=== PATIENT | male | born 1960 | race Caucasian/White ===

== ENCOUNTER 2023-06-16 11:54 | Outpatient (OUT) | payer OTHER, SELFPAY ==
[2023-06-16 12:12] LABS: Basophils Absolute Auto 0.1 10^3/uL (0.0-0.1); Basophils Percent Auto 0.7 % (0.2-2.0); Eosinophils Absolute Auto 0.1 10^3/uL (0.0-0.7); Eosinophils Percent Auto 0.7 % (0.9-7.0); Hematocrit 45.2 % (42.0-54.0); Hemoglobin 15.4 g/dL (14.0-18.0); Immature Granulocytes Abs Auto 0.02 10^3/uL (0.00-0.03); Immature Granulocytes Pct Auto 0.3 % (0.0-0.5); Lymphocytes Absolute Auto 1.1 10^3/uL (1.2-3.8); Lymphocytes Percent Auto 14.5 % (20.5-60.0); Mean Corpuscular HGB Conc 34.1 g/dL (29.9-35.2); Mean Corpuscular Hemoglobin 31.2 pg (25.9-34.0); Mean Corpuscular Volume 91.5 fL (80.0-94.0); Mean Platelet Volume 9.2 fL (9.5-13.5); Monocytes Absolute Auto 0.4 10^3/uL (0.3-0.8); Monocytes Percent Auto 5.9 % (1.7-12.0); Neutrophils Absolute Auto 5.8 10^3/uL (1.4-6.5); Neutrophils Percent Auto 77.9 % (43.0-75.0); Platelet Count 244 10^3/uL (150-450); Red Blood Count 4.94 10^6/uL (4.70-6.10); White Blood Count 7.5 10^3/uL (4.0-11.0)
[2023-06-16 14:42] LABS: Alanine Aminotransferase 25 U/L (16-63); Albumin Globulin Ratio 1.2; Albumin Level 3.6 g/dL (3.4-5.0); Alkaline Phosphatase 67 U/L (46-116); Anion Gap 13.7; Aspartate Amino Transferase 25 U/L (15-37); BUN Creatinine Ratio 21.1; Bilirubin Total 0.4 mg/dL (0.2-1.0); Calcium 9.3 mg/dL (8.5-10.1); Carbon Dioxide 26.3 mmol/L (21.0-32.0); Chloride 100 mmol/L (98-107); Chol HDL Ratio 2.9; Cholesterol 179 mg/dL (<=200); Estimated GFR (African America >60 (>=60); Estimated GFR (Non-African Ame >60 (>=60); Globulin 3.1 g/dL; Glucose 197 mg/dL (74-106); HDL Cholesterol 61 mg/dL (40-60); Sodium 136 mmol/L (136-145); Total Protein 6.7 g/dL (6.4-8.2); Triglycerides 130 mg/dL (<=150)
[2023-06-16 14:59] LABS: Prostate Specific Antigen Scrn 0.83 ng/mL (<=4.00)
[2023-06-16 17:20] LABS: Estimated Average Glucose 103 mg/dL; Glycohemoglobin A1C 5.2 % (4.5-6.2)
== END 2023-06-16 11:55 | disposition home or self-care (01) ==
LOC: LAB 11:58
PROVIDERS: PCP Family Medicine; Visit Provider Family Medicine
DX: Z00.00 Encounter for general adult medical examination without abnormal findings (principal); Z12.5 Encounter for screening for malignant neoplasm of prostate; R73.01 Impaired fasting glucose
CPT/HCPCS: 36415; 80053; 80061; 83036; 85025; G0103

== ENCOUNTER 2024-06-03 04:35 | Emergency (ER) | payer OTHER, SELFPAY ==
[2024-06-03 04:39] VITALS: BP 135/80; PULSE 124; TEMP 36.8; O2SAT 98; BMI 25.8
--- NOTE | 2024-06-03 04:44 | ED.DENTAL1 ---
HPI - Dental/Oral General Chief complaint: Dental/Oral Stated complaint: toothache Time Seen by Provider: 06/03/24 04:43 Source: patient Mode of arrival: walk-in Limitations: no limitations History of Present Illness HPI Narrative: cc - dental pain The patient's right front tooth is capped and he said that about a year ago it got infected. He saw that dentist which is when they applied this. Now he complains of the same kind of pain that started about 4 days ago but became acutely worse over the last 12 hours. He feels a painful swollen area on the roof of the mouth just behind the right front tooth. He said that he had a fever yesterday but none today. No other symptoms such as facial swelling, cheek pain, lip swelling, vomiting. Related Data Previous Rx's ?Medication ?Instructions ?Recorded clindamycin HCl 150 mg capsule 450 mg (3 x 150 mg) PO Q8H 7 days 06/03/24 #63 caps Allergies Allergy/AdvReac Type Severity Reaction Status Date / Time No Known Drug Allergies Allergy Verified 06/03/24 04:42 PFSH PFSH Social History Little interest or pleasure in doing things: not at all Feeling down, depressed, or hopeless: not at all Exam Narrative Exam Narrative: General: The patient is comfortable, alert and oriented x3, well appearing, non toxic in no apparent distress. Head: Atraumatic and normocephalic. Eyes: Normal conjunctiva ENT: The oropharynx is normal. No pharyngeal erythema, uvular edema, tonsillar exudates, asymmetry or trismus. Uvula is midline. Mouth is normal to inspection with the exception of a pain on percussion of the tooth #8 and the associated tissue behind the tooth on the roof of the mouth. The tooth is So I cannot see whether there are any caries present. There is no evidence of facial asymmetry or abscess formation. Floor of the mouth is soft. No tenderness in the submental or submandibular space. No tongue elevation or deviation. The patient has no evidence of periapical abscess, gingivitis or other acute pathology. Airway is patent. Neck: The neck demonstrates normal range of motion. No meningeals signs are present. No stridor. No masses or lymphandenopathy noted. Respiratory: No acute distress, lungs are clear to auscultation, no wheezing, rhonchi, or rales noted. No stridor or retractions are noted. Cardiovascular: Regular rate and rhythm Skin: The skin exam shows no evidence of rashes Neuro: Alert and oriented x4, normal speech Lymphatic: No cervical lymphadenopathy Constitutional Vital Signs, click to edit/add: Last Vital Signs Temp 98.2 F 06/03/24 04:39 Pulse 124 H 06/03/24 04:39 Resp 18 06/03/24 04:39 BP 135/80 06/03/24 04:39 Pulse Ox 98 06/03/24 04:39 O2 Del Method Room Air 06/03/24 04:39 Course Vital Signs Vital signs: Vital Signs Temperature 98.2 F 06/03/24 04:39 Pulse Rate 124 H 06/03/24 04:39 Respiratory Rate 18 06/03/24 04:39 Blood Pressure 135/80 06/03/24 04:39 Pulse Oximetry 98 06/03/24 04:39 Oxygen Delivery Method Room Air 06/03/24 04:39 Temperature 98.2 F 06/03/24 04:39 Pulse Rate 124 H 06/03/24 04:39 Respiratory Rate 18 06/03/24 04:39 Blood Pressure 135/80 06/03/24 04:39 Pulse Oximetry 98 06/03/24 04:39 Oxygen Delivery Method Room Air 06/03/24 04:39 MDM - Dental/Oral MDM Narrative Medical decision making narrative: The patient was started on clindamycin and given topical dental paste for pain control. He was discharged home and instructed to call his dentist tomorrow morning -in order to schedule follow-up NAVEEN. Discharge Plan Discharge Chief Complaint: Dental/Oral Clinical Impression: Toothache, Gingival abscess Patient Disposition: Home, Self-Care Time of Disposition Decision: 04:55 Prescriptions / Home Meds: New clindamycin HCl 150 mg capsule 450 mg PO Q8H 7 Days Qty: 63 0RF Print Language: [place] Instructions: Toothache (ED), Periodontal Disease (DC) Referrals: KELLY EMANUEL [Primary Care Provider] - 1 week
[2024-06-03] MEDS: CLINDAMYCIN HCL 150 MG CAPSULE 450 MG PO (05:03)
[2024-06-03] MEDS: BENZOCAINE 30 ML, lidocaine HCL 15 ML MM (05:03)
== END 2024-06-03 05:07 | disposition home or self-care (01) ==
PROVIDERS: Emergency Provider Emergency Medicine; PCP Family Medicine
DX: K05.20 Aggressive periodontitis, unspecified (principal); K08.89 Other specified disorders of teeth and supporting structures
CPT/HCPCS: 99283

== ENCOUNTER 2024-06-28 09:14 | Outpatient (OUT) | payer OTHER, SELFPAY ==
--- NOTE | 2024-06-28 09:19 | XR_ITS ---
[facility] [place] [id number] Patient Name: PATRICK BANSAL MRN: [id number] date: 1960 Sex: M Assigned Patient Location: [facility] Current Patient Location: [facility] Accession/Order Number: [id number] Exam Date: 06/28/2024 10:23 Report Date: 06/28/2024 10:29 At the request of: KELLY EMANUEL Procedure: XR chest 2V PA AND LATERAL CHEST: CLINICAL HISTORY: Chronic Cough COMPARISON: None Minimal atelectasis and/or scarring is noted. There is no focal parenchymal consolidation, effusion or pneumothorax. The cardiac, hilar and mediastinal silhouettes are within normal limits. There is no vascular congestion. The visualized bony thorax is intact. Mild dextroscoliotic curvature and tiny endplate spurs are present. XR/XR chest 2V IMPRESSION: NO ACUTE CARDIOPULMONARY ABNORMALITY. Impression dictated by: Jaleesa Dickinson M.D. 06/28/2024 10:29 AM Dictation Location: [place] [id number] Electronically authenticated by: [id number] Y Date: 06/28/2024 10:29
== END 2024-06-28 09:15 | disposition home or self-care (01) ==
LOC: RAD 09:15
PROVIDERS: PCP Family Medicine; Visit Provider Family Medicine
DX: R05.3 Chronic cough (principal)
CPT/HCPCS: 71046

== ENCOUNTER 2024-12-21 12:48 | Outpatient (OUT) | payer OTHER, SELFPAY ==
--- OUTSIDE RECORDS SUMMARY | 2024-12-21 12:56 | XMS_ITS | CCD ---
Author Organization [facility] Care Team Providers Care Screen Printing Loader Unloader Name Role Phone DR KELLY EMANUEL Admitting Unavailable DR KELLY EMANUEL Attending Unavailable DR KELLY EMANUEL Primary Care Unavailable DR KELLY EMANUEL Consulting Unavailable Problems Problem ClassificationProblemDateDocumented DateEpisodic/ChronicOther screening for suspected conditions (not mental disorders or infectious disease) (1 source)Encounter for screening for malignant neoplasm of prostate; Translations: [ENC SCREEN MALIG NEOPLASM PROSTATE]Onset: [id number] Results Test NameValueInterpretationReference RangeFacilityCBC WITH DIFFon [id number] BASOPHIL0.05 x10^3ulNormal(0.00 - 0.16)[facility] ClinicComment on above:Order Comment: FACILITY: DR EMANUEL - OFFICE [id number] By: #### CBC/D, CHEM-C, LIPID, PSA-S #### [facility] [address] [facility], [address] ABS EOSINOPHIL0.25 x10^3ulNormal(0.00 - 0.40)[facility] ClinicComment on above:Order Comment: FACILITY: DR EMANUEL - OFFICE [id number] By: #### CBC/D, CHEM-C, LIPID, PSA-S #### [facility] [address] [facility], [address] ABS IMMATURE GRANS0.02 x10^3ulNormal(0.00 - 0.11)[facility] ClinicComment on above:Order Comment: FACILITY: DR EMANUEL - OFFICE [id number] By: #### CBC/D, CHEM-C, LIPID, PSA-S #### [facility] [address] [facility], [address] ABS LYMPHOCYTE1.48 x10^3ulNormal(0.96 - 5.40)[facility] ClinicComment on above:Order Comment: FACILITY: DR EMANUEL - OFFICE [id number] By: #### CBC/D, CHEM-C, LIPID, PSA-S #### [facility] [address] [facility], [address] ABS MONOCYTE0.85 x10^3ulNormal(0.10 - 1.00)[facility] Comment on above:Order Comment: FACILITY: DR EMANUEL - OFFICE [id number] By: #### CBC/D, CHEM-C, LIPID, PSA-S #### [facility] [address] [facility], [address] ABS NEUTROPHIL6.59 x10^3ulNormal(1.50 - 7.00)[facility] ClinicComment on above:Order Comment: FACILITY: DR EMANUEL - OFFICE [id number] By: #### CBC/D, CHEM-C, LIPID, PSA-S #### [facility] [address] [facility], [address] Basophils/100 WBC (Bld)0.5 %Normal()[facility] ClinicComment on above:Order Comment: FACILITY: DR EMANUEL - OFFICE [id number] By: #### CBC/D, CHEM-C, LIPID, PSA-S #### [facility] [address] [facility], [address] Eosinophils/100 WBC (Bld)2.7 %Normal()[facility] Comment on above:Order Comment: FACILITY: DR EMANUEL - OFFICE [id number] By: #### CBC/D, CHEM-C, LIPID, PSA-S #### [facility] [address] [facility], [address] Hematocrit (Bld) [Volume fraction]47.4 %Normal(42.0 - 52.0)[facility] ClinicComment on above:Order Comment: FACILITY: DR EMANUEL - OFFICE [id number] By: #### CBC/D, CHEM-C, LIPID, PSA-S #### [facility] [address] [place], [address] Hemoglobin (Bld) [Mass/Vol]16.7 g/dLNormal(14.0 - 18.0) [facility] ClinicComment on above:Order Comment: FACILITY: DR EMANUEL - OFFICE [id number] By: #### CBC/D, CHEM-C, LIPID, PSA-S #### [facility] [address] [place], [address] IMMATURE GRANS (IG)0.2 %Normal()[facility] ClinicComment on above:Order Comment: FACILITY: DR EMANUEL - OFFICE [id number] By: #### CBC/D, CHEM-C, LIPID, PSA-S #### [facility] [address] [place], [address] LYMPS16.0 %Normal()[facility] ClinicComment on above:Order Comment: FACILITY: DR EMANUEL - OFFICE [id number] By: #### CBC/D, CHEM-C, LIPID, PSA-S #### [facility] [address] [place], [address] MCH (RBC) [Entitic mass]30.1 pgNormal(27.0 - 33.0)[facility] ClinicComment on above:Order Comment: FACILITY: DR EMANUEL - OFFICE [id number] By: #### CBC/D, CHEM-C, LIPID, PSA-S #### [facility] [address] [place], [address] MCHC (RBC) [Mass/Vol]35.2 g/dLNormal(30.0 - 37.0)[facility] ClinicComment on above:Order Comment: FACILITY: DR EMANUEL - OFFICE [id number] By: #### CBC/D, CHEM-C, LIPID, PSA-S #### [facility] [address] [place], [address] MCV (RBC) [Entitic vol]85.6 fLNormal(80.0 - 94.0)[facility] ClinicComment on above:Order Comment: FACILITY: DR EMANUEL - OFFICE [id number] By: #### CBC/D, CHEM-C, LIPID, PSA-S #### [facility] [address] [place], [address] MONOS9.2 %Normal()[facility] ClinicComment on above:Order Comment: FACILITY: DR EMANUEL - OFFICE [id number] By: #### CBC/D, CHEM-C, LIPID, PSA-S #### [facility] [address] [place], [address] PLT233 x10^3ulNormal(130 - 400)[facility] ClinicComment on above:Order Comment: FACILITY: DR EMANUEL - OFFICE [id number] By: #### CBC/D, CHEM-C, LIPID, PSA-S #### [facility] [address] [place], [address] RBC5.54 x10^6ulNormal(4.70 - 6.10)[facility] ClinicComment on above:Order Comment: FACILITY: DR EMANUEL - OFFICE [id number] By: #### CBC/D, CHEM-C, LIPID, PSA-S #### [facility] [address] [place], [address] [phone]-XJ61.6 flNormal(37.0 - 49.0)[facility] ClinicComment on above:Order Comment: FACILITY: DR EMANUEL - OFFICE [id number] By: #### CBC/D, CHEM-C, LIPID, PSA-S #### [facility] [address] [place], [address] SEGS71.4 %Normal()[facility] ClinicComment on above:Order Comment: FACILITY: DR EMANUEL - OFFICE [id number] By: #### CBC/D, CHEM-C, LIPID, PSA-S #### [facility] [address] [place], [address] WBC9.23 x10^3ulNormal(3.80 - 10.60)[facility] ClinicComment on above:Order Comment: FACILITY: DR EMANUEL - OFFICE [id number] By: #### CBC/D, CHEM-C, LIPID, PSA-S #### [facility] [address] [place], [address] COMP METABOLIC PANEL W/GFRon [id number] [Mass/Vol]4.5 g/dLNormal(3.5 - 5.0)[facility] ClinicComment on above:Performed By: #### CBC/D, CHEM-C, LIPID, PSA-S #### [facility] [address] [place], [address] ALK PHOS75 U/LNormal(38 - 126)[facility] ClinicComment on above:Performed By: #### CBC/D, CHEM-C, LIPID, PSA-S #### [facility] [address] [place], [address] ALT [Catalytic activity/Vol]35 U/LNormal(1 - 45)[facility] ClinicComment on above:Performed By: #### CBC/D, CHEM-C, LIPID, PSA-S #### [facility] [address] [place], [address] AST [Catalytic activity/Vol]34 U/LNormal(15 - 46)[facility] ClinicComment on above:Performed By: #### CBC/D, CHEM-C, LIPID, PSA-S #### [facility] [address] [place], [address] Bilirubin [Mass/Vol]0.8 mg/dLNormal(0.2 - 1.3)[facility] ClinicComment on above:Performed By: #### CBC/D, CHEM-C, LIPID, PSA-S #### [facility] [address] [place], [address] Calcium [Mass/Vol]9.7 mg/dLNormal(8.6 - 10.6)[facility] ClinicComment on above:Performed By: #### CBC/D, CHEM-C, LIPID, PSA-S #### [facility] [address] [place], [address] Chloride [Moles/Vol]105 mmol/LNormal(98 - 107)[facility] ClinicComment on above:Performed By: #### CBC/D, CHEM-C, LIPID, PSA-S #### [facility] [place], [address] CO2 [Moles/Vol]27 mmol/LNormal(22 - 30)[facility] Comment on above:Performed By: #### CBC/D, CHEM-C, LIPID, PSA-S #### [facility] [place], [address] Creatinine [Mass/Vol]0.76 mg/dLNormal(0.66 - 1.25)[facility] ClinicComment on above:Performed By: #### CBC/D, CHEM-C, LIPID, PSA-S #### [facility] [address] [place], [address] [phone]-UWQOEKH BHWW279.0 ML/M1.7Normal(60.0 - 161.8)[facility] ClinicComment on above:Performed By: #### CBC/D, CHEM-C, LIPID, PSA-S #### [facility] [address] [place], [address] [phone]-FAK AFRIC-ZJHG449.0 ML/M1.7Normal(60.0 - 133.8) [facility] ClinicComment on above:Performed By: #### CBC/D, CHEM-C, LIPID, PSA-S #### [facility] [address] [place], [address] Glucose [Mass/Vol]103 mg/dLNormal(74 - 106)[facility] Comment on above:Performed By: #### CBC/D, CHEM-C, LIPID, PSA-S #### [facility] [address] [place], [address] Potassium [Moles/Vol]4.4 mmol/LNormal(3.5 - 5.1)[facility] ClinicComment on above:Performed By: #### CBC/D, CHEM-C, LIPID, PSA-S #### [facility] [address] [place], [address] Protein [Mass/Vol]7.4 g/dLNormal(6.3 - 8.2)[facility] Comment on above:Performed By: #### CBC/D, CHEM-C, LIPID, PSA-S #### [facility] [address] [place], [address] Sodium [Moles/Vol]141 mmol/LNormal(137 - 145)[facility] ClinicComment on above:Performed By: #### CBC/D, CHEM-C, LIPID, PSA-S #### [facility] [address] [place], [address] Urea nitrogen [Mass/Vol]9 mg/dLNormal(9 - 20)[facility] ClinicComment on above:Performed By: #### CBC/D, CHEM-C, LIPID, PSA-S #### [facility] [address] [place], [address] LIPID PROFILEon [id number]-HDL RATIO3.5Normal(0.0 - 5.0)[facility] ClinicComment on above:Result Comment: CHOL REFERENCE RANGE: DESIRABLE: < 200 MG/DL BORDERLINE: 200 - 239 MG/DL HIGH RISK: > 240 MG/DL HDL REFERENCE RANGE: DESIRABLE: >45 MG/DL BORDERLINE: 32 - 45 MG/DL HIGH RISK: < 32 MG/DL LDL REFERENCE RANGE: DESIRABLE: < 130 MG/DL BORDERLINE: 130 - 159 MG/DL HIGH RISK: > 160 MG/DL CHOL-HDL RATIO: MALE: LOW RISK : 0 - 5.0, MOD RISK: 5.1 - 9.6, HIGH RISK: > 9.6 FEMALE: LOW RISK : 0 - 4.4, MOD RISK: 4.5 - 7.1, HIGH RISK: > 7.1Performed By: #### CBC/D, CHEM-C, LIPID, PSA-S #### [facility] [address] [place], [address] Cholesterol [Mass/Vol]219 mg/dLHigh(120 - 200)[facility] ClinicComment on above:Performed By: #### CBC/D, CHEM-C, LIPID, PSA-S #### [facility] [address] [place], [address] Cholesterol in HDL [Mass/Vol]63 mg/dLHigh(40.0 - 60.0) [facility] ClinicComment on above:Performed By: #### CBC/D, CHEM-C, LIPID, PSA-S #### [facility] [address] [place], [address] Cholesterol in LDL [Mass/Vol]126 mg/dLNormal(0 - 130) [facility] ClinicComment on above:Performed By: #### CBC/D, CHEM-C, LIPID, PSA-S #### [facility] [address] [facility], [address] Cholesterol in VLDL [Mass/Vol]30 mg/dLNormal(7 - 46) [facility] ClinicComment on above:Performed By: #### CBC/D, CHEM-C, LIPID, PSA-S #### [facility] [address] [facility], [address] Triglyceride [Mass/Vol]150 mg/dLNormal(30 - 150)[facility] CampusComment on above:Performed By: #### CBC/D, CHEM-C, LIPID, PSA-S #### [facility] [address] [facility], [address] PSAon [id number] SP AG0.93 NG/MLNormal(0.00 - 4.00)[facility] CampusComment on above:Result Comment: PSA performed on [employer] 56[employer]. An immunometric equimolar test technique. PSA Min. Detection = 0.06 NG/ML. Patient results determined by assays using different manufactures and/or methods may not be comparable.Performed By: #### CBC/D, CHEM-C, LIPID, PSA-S #### [facility] [address] [facility], [address] CBC AUTO DIFFon [id number] #0.0 103/ulNormal0.0-0.1 [facility] CenterComment on above:Performed By: #### CBC #### [facility] [address] [address] [address] Clara PerlaBasophils/100 WBC (Bld)0.6 %Normal0.2-2.0[facility] Comment on above:Performed By: #### CBC #### [facility] [address] [address] [address] Clara Noland #0.1 103/ulNormal0.0-0.7The [facility] HospitalComment on above: Performed By: #### CBC #### [facility] [address] [address] [address] Clara Bondosinophils/100 WBC (Bld)1.6 %Normal0.9-7.0[facility] Comment on above:Performed By: #### CBC #### [facility] [address] [place] [address] Dr. Clara Bondrythrocyte distribution width (RBC) [Ratio]12.3 %Hlulip09.0-15.0 [facility] on above:Performed By: #### CBC #### [facility] [address] [place] [address] Dr. Clara PerlaHematocrit (Bld) [Volume fraction]44.8 %Wdewut84.0-54.0The [facility] HospitalComment on above:Performed By: #### CBC #### [facility] [address] [place] [address] Dr. Clara PerlaHemoglobin (Bld) [Mass/Vol]15.4 g/zOThdgdx58.0-18.0The [facility] HospitalComment on above:Performed By: #### CBC #### [facility] [address] [place] [address] Dr. Clara Araujo #0.01 10e3/ulNormal0.00-0.03The [facility] HospitalComv[facility] affairs [facility] on above:Performed By: #### CBC #### [facility] [address] [place] [address] Dr. Clara Araujo %0.2 %Normal0.0-0.5The [facility] on above: Performed By: #### CBC #### [facility] [address] [place] [address] Dr. Clara RendonH #1.8 103/ulNormal1.2-3.8The [facility] HospitalComment on above:Performed By: #### CBC #### [facility] [address] [place] [address] Dr. Clara Lindsaymphocytes/100 WBC (Bld)28.0 %Rmxvzb79.5-60.0The [facility] HospitalComment on above:Performed By: #### CBC #### [facility] [address] [place] [address] Dr. Clara McnamaraUAL DIFF REQNONormalThe [facility] HospitalComment on above: Performed By: #### CBC #### [facility] [address] [address] [address] Clara Richmond (RBC) [Entitic mass]30.2 ggEhivfw42.9-34.0The [facility] HospitalComment on above:Performed By: #### CBC #### [facility] [address] [address] [address] Clara Richmond (RBC) [Mass/Vol]34.4 g/mOIuivyx60.9-35.2The [place] HospitalComment on above:Performed By: #### CBC #### [facility] [address] [place] [address] Dr. Clara Richmond (RBC) [Entitic vol]87.8 mDWeewry36.0-94.0The [facility] HospitalComment on above:Performed By: #### CBC #### [facility] [address] [place] [address] Dr. Clara Domingo #0.5 103/ulNormal0.3-0.8The [facility] HospitalComment on above:Performed By: #### CBC #### [facility] [address] [place] [address] Dr. Clara Ramirezocytes/100 WBC (Bld)7.8 %Normal1.7-12.0The [facility] Comment on above:Performed By: #### CBC #### [facility] [address] [address] [address] Clara Dalton #3.9 103/ulNormal1.4-6.5The [facility] HospitalComment on above:Performed By: #### CBC #### [facility] [address] [place] [address] Dr. Clara Mccabeutrophils/100 WBC (Bld)61.8 %Tsscew79.0-75.0The [facility] HospitalComment on above:Performed By: #### CBC #### [facility] [address] [place] [address] Dr. Clara Leelet mean volume (Bld) [Entitic vol]8.6 fLCritically low 9.5-13.5The [facility] HospitalComment on above:Performed By: #### CBC #### [facility] [address] [address] [address] Clara RubinT229 103/lyThewhf144-431Bhg [facility] HospitalComment on above: Performed By: #### CBC #### [facility] [address] [address] [address] Clara PerlaRBC5.10 106/ulNormal4.70-6.10The [facility] HospitalComment on above:Performed By: #### CBC #### [facility] [address] [place] [address] Dr. Clara PerlaWBC6.3 103/ulNormal4.0-11.0The [facility] HospitalComment on above: Performed By: #### CBC #### [facility] [address] [place] [address] Dr. Clara GreerID PROFILEon [id number]-HDL RATIO NORMSOur Lady of Mercy HospitalComment on above:Result Comment: 3.3 - 4.4 LOW RISK 4.4 - 7.1 AVERAGE RISK 7.1 - 11.0 MODERATE RISK >11.0 HIGH RISKPerformed By: #### LIPID, CMP #### [facility] [address] [place] [address] Dr. Clara PerlaCholesterol [Mass/Vol]238 mg/dLCritically high<=200The [facility] HospitalComment on above:Performed By: #### LIPID, CMP #### [facility] [address] [place] [address] Dr. Clara Arthuresterol in HDL [Mass/Vol]68 mg/dLSt. [facility] Comment on above:Performed By: #### LIPID, CMP #### [facility] [address] [place] [address] Dr. Clara Arthuresterol in LDL [Mass/Vol]159.4 mg/dLSt. Vincent HospitalComveterans affairs medical center on above:Performed By: #### LIPID, CMP #### [facility] [address] [place] [address] Dr. Clara PerlaCholesterol.total/Cholesterol in HDL [Mass ratio]3.5 {ratio} NormalThe [facility] HospitalComment on above:Performed By: #### LIPID, CMP #### [facility] [address] [address] [address] Clara Barahona NORMAL> or = 60 mg/dl - LOW CARDIOVASCULAR RISK <40 mg/dl - HIGH CARDIOVASCULAR RISKSt. Vincent HospitalComment on above:Performed By: #### LIPID, CMP #### [facility] [address] [place] [address] Dr. Clara PerlaLDL CALC NORMALSEE BELOWSt. Vincent HospitalComment on above:Result Comment: <100 mg/dl OPTIMAL 100 - 129 mg/dl NEAR OR ABOVE OPTIMAL 130 - 159 mg/dl BORDERLINE HIGH 160 - 189 mg/dl HIGH >190 mg/dl VERY HIGH Performed By: #### LIPID, CMP #### [facility] [address] [place] [address] Dr. Clara PerlaTriglyceride [Mass/Vol]53 mg/dLNormal<=150[facility] Comment on above:Performed By: #### LIPID, CMP #### [facility] [address] [place] [address] Dr. Clara SaundersLDL CALC10.6 mg/dLNormPomerene HospitalComment on above: Performed By: #### LIPID, CMP #### [facility] [address] [place] [address] Dr. Clara PerlaPROF 14(COMP METB)on 66-37-9998Sblzosb [Mass/Vol]4.0 g/dLNormal 3.5-5.0[facility] CenterComment on above:Performed By: #### LIPID, CMP #### [facility] [address] [place] [address] Dr. Clara PerlaAlbumin/Globulin [Mass ratio]1.2 {ratio}NormalThe [facility] HospitalComment on above:Performed By: #### LIPID, CMP #### [facility] [address] [place] [address] Dr. Clara Whitley [Catalytic activity/Vol]64 U/TUyfcmj92-880Qlp [facility] HospitalComment on above:Performed By: #### LIPID, CMP #### [facility] [address] [address] [address] Clara HickmanT [Catalytic activity/Vol]20 U/LCritically mfj59-85Bjq [facility] HospitalComment on above:Performed By: #### LIPID, CMP #### [facility] [address] [address] [address] Clara Bloomon gap [Moles/Vol]10.0 mmol/LNormalUniversity [facility]als [facility] Comment on above:Performed By: #### LIPID, CMP #### [facility] [address] [place] [address] Dr. Clara PerlaAST [Catalytic activity/Vol]14 U/LCritically fxu56-86Ydp [facility] HospitalComment on above:Performed By: #### LIPID, CMP #### [facility] [address] [place] [address] Dr. Clara PerlaBilirubin [Mass/Vol]0.4 mg/dLNormal0.2-1.3TOhioHealth Van Wert Hospital Comment on above:Performed By: #### LIPID, CMP #### [facility] [address] [place] [address] Dr. Clara PerlaCalcium [Mass/Vol]8.7 mg/dLNormal8.4-10.2[facility] Comment on above:Performed By: #### LIPID, CMP #### [facility] [address] [place] [address] Dr. Clara PerlaChloride [Moles/Vol]104 mmol/JLuoxyk59-015DteUniversity Hospitals Elyria Medical Center Comment on above:Performed By: #### LIPID, CMP #### [facility] [address] [place] [address] Dr. Clara PerlaCO2 [Moles/Vol]28.1 mmol/MTymxif23.0-30.0[facility] Comment on above:Performed By: #### LIPID, CMP #### [facility] [address] [address] [address] Clara PerlaCreatinine [Mass/Vol]1.02 mg/dLNormal0.66-1.25The [facility] HospitalComment on above:Performed By: #### LIPID, CMP #### [facility] [address] [address] [address] Clara BondGFR-AF CAY[place] ISLANDER>60Normal>=60The [facility] HospitalComment on above:Performed By: #### LIPID, CMP #### [facility] [address] [address] [address] Clara BondGFR-NON AF [place] ISLANDER>60Normal>=60The [facility] HospitalComment on above:Performed By: #### LIPID, CMP #### [facility] [address] [place] [address] Dr. Clara PerlaGlobulin (S) [Mass/Vol]3.3 g/dLNormalThe [facility] HospitalComment on above:Performed By: #### LIPID, CMP #### [facility] [address] [place] [address] Dr. Clara PerlaGlucose [Mass/Vol]107 mg/dLCritically wbsy19-211XcdUniversity Hospitals Elyria Medical CenterComment on above:Performed By: #### LIPID, CMP #### [facility] [address] [place] [address] Dr. Clara PerlaPotassium [Moles/Vol]4.1 mmol/LNormal3.4-5.0The [facility] Comment on above:Performed By: #### LIPID, CMP #### [facility] [address] [place] [address] Dr. Clara PerlaProtein [Mass/Vol]7.3 g/dLNormal6.1-8.2[facility] Comment on above:Performed By: #### LIPID, CMP #### [facility] [address] [place] [address] Dr. Clara PerlaSodium [Moles/Vol]138 mmol/MWvsyqa022-458Pei [facility] Comment on above:Performed By: #### LIPID, CMP #### [facility] [address] [address] [address] Clara PerlaUrea nitrogen [Mass/Vol]15.0 mg/dLNormal9.0-20.0The [facility] HospitalComveterans affairs medical center on above:Performed By: #### LIPID, CMP #### [facility] [address] [id number] Clara PerlaUrea nitrogen/Creatinine [Mass ratio]14.7 mg/mgNormalThe [facility] HospitalComment on above:Performed By: #### LIPID, CMP #### [facility] [address] [id number] Clara Perla Encounters Encounter DateEncounter TypeCare ProviderFacilityStart: 26-82-1001Vmsvybwjs for general adult medical examination without abnormal findingsDR KELLY A JENAE [facility] HospitalStart: 04-11-2021 End: 18-90-6926kzdlsequibGQ KELLY A HAYNESFacility:U7Tzmvf: 04-11-2021 End: 15-36-1384Tqumeyfea for general adult medical examination without abnormal findingsDR KELLY A HAYNESFacility:H1 Procedures DateProcedureProcedure DetailPerforming ClinicianStart: 06-16-5644ROB screening DR KELLY Pizano on above:Performed By: #### PSASC #### [facility] [address] [place] [address] Dr. Clara Perla Payers DatePayer CategoryPayerPolicy [id number] Summary Purpose Family History No Family History Records FoundNo Family History Records Found Advance Directives No Advanced Directives Records FoundNo Advanced Directives Records Found Additional Source Comments (unrecognized sect ion and content) No Status Records FoundNo Status Records Found INFORMATION SOURCE (unrecogn ized section and content) DATE CREATED AUTHOR 04/16/2021 [facility] DATE CREATED AUTHOR 'S ORGANIZ ATION 05/28/2022 [facility] FOR RECORDS PERTAINING TO PATIENTS WHO ARE OR HAVE BEEN ENROLLED IN A CHEMICAL DEPENDENCY/SUBSTANCEABUSE PROGRAM, SOME INFORMATION MAY BE OMITTED. This clinical summary was aggregated from multiple sources. Caution should be exercised in using it in the provision of clinical care. This summary normalizes information from multiple sources, and as a consequence, information in this document may materially change the coding, format and clinical context of patient data. In addition, data may be omitted in some cases. CLINICAL DECISIONS SHOULD BE BASED ON THE PRIMARY CLINICAL RECORDS. [facility] provides no warranty or guarantee of the accuracy or completeness of information in this document.
[2024-12-21 13:25] LABS: Hematocrit 41.9 % (42.0-54.0); Hemoglobin 14.7 g/dL (14.0-18.0); Immature Granulocytes Abs Auto 0.01 10^3/uL (0.00-0.03); Immature Granulocytes Pct Auto 0.2 % (0.0-0.5); Lymphocytes Absolute Auto 2.0 10^3/uL (1.2-3.8); Mean Corpuscular HGB Conc 35.1 g/dL (29.9-35.2); Mean Corpuscular Hemoglobin 30.6 pg (25.9-34.0); Mean Corpuscular Volume 87.1 fL (80.0-94.0); Platelet Count 267 10^3/uL (150-450); Red Blood Count 4.81 10^6/uL (4.70-6.10); White Blood Count 6.4 10^3/uL (4.0-11.0)
[2024-12-21 13:43] LABS: Alanine Aminotransferase 38 U/L (16-63); Albumin Globulin Ratio 1.2; Albumin Level 3.8 g/dL (3.4-5.0); Alkaline Phosphatase 60 U/L (46-116); Anion Gap 12.3; Aspartate Amino Transferase 18 U/L (15-37); Blood Urea Nitrogen 14.0 mg/dL (7.0-18.0); Calcium 9.0 mg/dL (8.5-10.1); Carbon Dioxide 28.9 mmol/L (21.0-32.0); Chloride 101 mmol/L (98-107); Cholesterol 255 mg/dL (<=200); Estimated GFR (African America >60 (>=60 mL/min/1.73m^2); Estimated GFR (Non-African Ame >60 (>=60 mL/min/1.73m^2); Globulin 3.3 g/dL; Glucose 120 mg/dL (74-106); HDL Cholesterol 53 mg/dL (40-60); Potassium 4.2 mmol/L (3.5-5.1); Sodium 138 mmol/L (136-145); Total Protein 7.1 g/dL (6.4-8.2); Triglycerides 194 mg/dL (<=150); VLDL CHOLESTEROL 38.8 mg/dL
== END 2024-12-21 12:49 | disposition home or self-care (01) ==
LOC: LAB 12:51
PROVIDERS: PCP Family Medicine; Visit Provider Family Medicine
DX: Z00.00 Encounter for general adult medical examination without abnormal findings (principal); R73.01 Impaired fasting glucose; Z12.5 Encounter for screening for malignant neoplasm of prostate
CPT/HCPCS: 36415; 80053; 80061; 83036; 85025; G0103